=== PATIENT | male | born 1995 | race African-American/Black ===

== ENCOUNTER 2018-07-12 16:22 | Emergency (ER) | payer OTHER ==
[~2018-07-12] VITALS: Ht 165.1 cm; Wt 73.0 kg
[2018-07-12 17:48] VITALS: BP 136/91
== END 2018-07-12 17:49 | disposition home or self-care (01) ==
LOC: ER 16:22
DX: S63.695A Other sprain of left ring finger, initial encounter (principal); X58.XXXA Exposure to other specified factors, initial encounter; Y93.89 Activity, other specified; Y92.89 Other specified places as the place of occurrence of the external cause; Y99.8 Other external cause status
CPT/HCPCS: 29130; 73130; 99283